=== PATIENT | female | born 1980 | race African-American/Black ===

== ENCOUNTER 2017-01-06 13:01 | Emergency (ER) | payer OTHER ==
[~2017-01-06] VITALS: Ht 165.1 cm; Wt 64.0 kg
--- NOTE | ~2017-01-06 | US67 ---
[facility] A Service of [facility] RADIOLOGY TEXT RESULTS PATIENT: WENDY BHATT LOCATION: [facility] : [birth year] UNIT #: [id number] AGE: [address]: Calvin Hunter MD SEX: F ORDER DR: [id number] [facility] [address] [place], [place] [address] [id number] E MR#: [id number] Acc #: [id number] NAME: WENDY BHATT : 1980 SEX: F STUDY DATE/TIME: 01/06/2017 16:36 UNIT: TRAV ROOM: STUDY DESCRIPTION: US Gallbladder Attending Physician: Calvin Hunter M.D. Ordering Physician: Calvin Hunter M.D. Primary Care Physician: No Primary Care Physician MEDICAL IMAGING REPORT This report is preliminary unless electronic signature is present EXAM Gallbladder ultrasound, 01/06/2017. HISTORY Right upper quadrant abdominal pain for 3 weeks. History of gallstones. FINDINGS The liver is homogeneous in echotexture and demonstrates no cystic or solid mass lesions. The intra and extrahepatic bile ducts are not dilated. The gallbladder is packed with sludge and contains gallstones. Additionally, there is diffuse thickening of the gallbladder wall measuring 5 mm. Findings are concerning for possible cholecystitis. Consider correlation with HIDA scan. The common duct measures 6 mm. The pancreas and right kidney are normal. IMPRESSION Abnormal examination. The gallbladder is distended and completely packed with sludge and also contains small gallstones. There is diffuse thickening of the gallbladder wall. Findings are concerning for possible cholecystitis. Clinical correlation is recommended. Consider correlation with HIDA scan. STAT * RESULT Dictated by... Khurram Brown M.D. THIS IS AN ELECTRONICALLY VERIFIED REPORT Khurram Brown M.D. at 01/06/2017 5:54 PM MARYBETH/yaniv [facility] A Service of [facility] RADIOLOGY TEXT RESULTS PATIENT: W[facility] BHATT [id number] [birth year] UNIT #: [id number] AGE: [address]: Calvin Hunter MD SEX: F ORDER DR: TD: 01/06/2017 16:56 JOB #: [id number] MEDICAL IMAGING REPORT Page 1 of 1 COPY
--- NOTE | ~2017-01-06 | CT4 ---
[facility] A Service of [facility] RADIOLOGY TEXT RESULTS PATIENT: WENDY HBATT LOCATION: [facility] : 80 UNIT #: [id number] AGE: [address]: Calvin Hunter MD SEX: F ORDER DR: [id number] [facility] [address] [place], [place] [address] [id number] E MR#: [id number] Acc #: [id number] NAME: WENDY BHATT : 1980 SEX: F STUDY DATE/TIME: 01/06/2017 15:22 UNIT: TRAV ROOM: STUDY DESCRIPTION: CT Abd and Pelv Wo Cont Attending Physician: Calvin Hunter M.D. Ordering Physician: Hunter Guy M.D. Primary Care Physician: Primary Care Physician No MEDICAL IMAGING REPORT This report is preliminary unless electronic signature is present EXAM CT abdomen and pelvis without contrast INDICATIONS Back pain, right upper quadrant pain today, history of gallstones. No comparison. TECHNIQUE Axial 3-mm images were obtained through the abdomen and pelvis without IV or oral contrast. Sagittal and coronal reconstructions were generated. This CT exam was performed with one or more of the following radiation dose reduction techniques: Automatic exposure control, adjustment of mA and/or kV according to patient size, and iterative reconstruction. FINDINGS The liver, spleen, pancreas, adrenal glands and kidneys are normal. The gallbladder is abnormal. There is either a large low-density stone within the gallbladder or there is fluid distending the gallbladder wall. There is definitely a small, calcified stone in the lower gallbladder measuring about 1 cm in diameter. In the upper gallbladder, there is a thin outline of what could be a large stone versus wall edema that is about 2 cm in thickness. Aorta is normal in size and there is no adenopathy. The bowel is normal. There is a small amount of free fluid in the pelvis. The uterus, adnexal regions and bladder are normal. The cecum lies in the deep pelvis, above the bladder. The bones are unremarkable. IMPRESSION 1. The gallbladder is distended and there are definitely some small, calcified stones within it. In the gallbladder near the neck, there is a 2 cm rim-like area of density that could represent a large, noncalcified stone, or possibly the rim-like appearance could represent the wall with edema surrounding it. There is no biliary STS. [facility] A Service of [facility] RADIOLOGY TEXT RESULTS PATIENT: WENDY BHATT LOCATION: [facility] : 80 UNIT #: [id number] AGE: [address]: Calvin Hunter MD SEX: F ORDER DR: distension. 2. Minimal free fluid in the pelvis. 3. Otherwise, normal. Dictated by... Yousif Valdez M.D. THIS IS AN ELECTRONICALLY VERIFIED REPORT Yousif Valdez M.D. at 01/07/2017 6:07 AM JORDI/david TD: 01/06/2017 21:43 JOB #: [id number] MEDICAL IMAGING REPORT Page 1 of 1 COPY
[~2017-01-06 13:01] MED LIST: PRILOSEC20 MG PO
[2017-01-06 15:20] LABS: BASOPHIL% 0.9 % (0-2.5); EOSINOPHIL# 0.1 X10e3 (0-0.7); EOSINOPHIL% 1.9 % (0.0-7.0); HEMATOCRIT 31.9 % (35.0-45.0); HEMOGLOBIN 10.4 gm/dL (12.0-16.0); LYMPHOCYTE# 1.5 X10e3 (1.0-3.5); LYMPHOCYTE% 45.6 % (17.0-45.0); MEAN CELL VOLUME 81.9 FL (83-96); MEAN CORPUSCULAR HEMOGLOBIN 26.7 PG (28-34); MEAN CORPUSCULAR HGB CONC 32.6 g/dL (30-36); MEAN PLATELET VOLUME 6.8 FL (6.5-11.5); MONOCYTE# 0.2 X10e3 (0-1.0); MONOCYTE% 7.5 % (3.0-12.0); NEUTROPHIL# 1.5 X10e3 (1.5-7.1); NEUTROPHIL% 44.1 % (40-75); PLATELET COUNT 266 X10e3 (140-420); RED BLOOD COUNT 3.89 X10e (3.90-5.30); RED CELL DISTRIBUTION WIDTH 13.5 % (11.0-15.5); WHITE BLOOD COUNT 3.3 X10e3 (4.0-10.5)
[2017-01-06 15:21] LABS: DIFF IND NO
[2017-01-06 15:45] LABS: ALBUMIN SERUM 3.9 g/dL (3.5-5.0); BILIRUBIN, DIRECT 0.1 mg/dL (0.0-0.2); BILIRUBIN,INDIRECT 0.8 mg/dL (0.0-0.9); BILIRUBIN,TOTAL 0.9 mg/dL (0.2-2.0); CALCIUM SERUM 8.2 mg/dL (8.4-10.2); CREATININE SERUM 0.5 mg/dL (0.6-1.4); GLOM FILT RATE Estimated 144.3 mL/min (>60); POTASSIUM 3.9 mmol/L (3.5-5.1); PROTEIN TOTAL SERUM 7.4 g/dL (6.0-8.3)
[2017-01-18] MEDS ORDERED: NO MEDICATIONS (14:28)
== END 2017-01-06 18:24 | disposition home or self-care (01) ==
LOC: CED 13:01
PROVIDERS: Emergency Medicine
DX: K80.70 Calculus of gallbladder and bile duct without cholecystitis without obstruction (principal)
CPT/HCPCS: 36415; 74176; 76705; 80048; 80076; 82150; 83690; 84703; 85025; 96361; 96374; 99284; J1885

== ENCOUNTER → 2017-01-24 | Day surgery (SDC) | payer OTHER ==
[~2017-01-24] MED LIST changes: +NO MEDICATIONS
--- NOTE | ~2017-01-24 | OR ---
Unit #: [id number] #: [id number] Patient: WENDY BHATT [id number] [address] [address] [id number] O MR#: [id number] NAME: WENDY BHATT ROOM: Date of Procedure: 01/24/2017 Admission Date: 01/24/2017 Surgeon: Sinan Roe III, M.D. : 1980 Attending Physician: Sinan Roe III, M.D. Primary Care Physician: Primary Care Physician No OPERATIVE REPORT PREOPERATIVE DIAGNOSIS Symptomatic cholelithiasis. POSTOPERATIVE DIAGNOSIS Symptomatic cholelithiasis with acute on chronic cholecystitis. SPECIMENS Gallbladder to Pathology. COMPLICATIONS None apparent. ESTIMATED BLOOD LOSS Minimal. ANESTHESIA General endotracheal tube anesthesia. DRAINS None. INDICATIONS FOR PROCEDURE This is a 36-year-old lady, who I saw in the office with what looked like symptomatic cholelithiasis. She is here today for laparoscopic cholecystectomy. DESCRIPTION OF PROCEDURE After consent was obtained, the patient was brought to the operating room and placed in the supine position. General anesthetic was administered, and her abdomen was prepped and draped in standard surgical fashion. I made a 5-mm incision in the right upper quadrant. I used an Optiview to enter into the peritoneal cavity without any difficulty. CO2 pneumoperitoneum was then established. Next, a second 5-mm port was placed in the infraumbilical region and an 11-mm port was placed in the midepigastric region and a third 5-mm port was placed in the right lateral subcostal region. She had a very tense distended gallbladder that I could not grasp. I had to aspirate it first and it was filled with what looked like almost an infected like fluid. I then was able to grasp the gallbladder and retracted superiorly and taken down some of the adhesions to the body of the gallbladder. Once this was done, I could then see the neck of the gallbladder which contained a large stone. I then provided some lateral traction as well and was able to dissect out the cystic duct Unit #: [id number] #: [id number] Patient: WENDY BHATT and cystic artery and after these were carefully identified, I placed two clips proximally and one clip distally along both structures and then they were divided. She also had a small posterior branch that was also clipped and divided. I then took the gallbladder off the liver bed using the hook cautery. I placed the gallbladder in an EndoCatch bag and extracted it through the epigastric port site after enlarging the skin opening and dilating the fascia to accommodate the large stone. Afterwards, I irrigated and had good hemostasis. I injected all the port sites with 0.25% plain Marcaine. The ports were removed and pneumoperitoneum was released. I reapproximated the fascia at the epigastric port site with interrupted 0 Vicryl [id number] suture. I then reapproximated the skin edges with interrupted 4-0 Vicryl subcuticular suture. Steri-Strips were then applied. The patient tolerated the procedure without any problems and returned to the recovery room in stable condition. Dictated by... Sinan Roe III, M.D. VCL/shanique TD: 01/24/2017 15:26 JOB #: [id number] OPERATIVE REPORT Page 1 of 1 X Sinan Roe III, MD PROCEDURE OPERATIVE NOTE
== END | disposition home or self-care (01) ==
LOC: CSUR 07:48
PROVIDERS: Surgery
PROC: 0FT44ZZ Resection of Gallbladder, Percutaneous Endoscopic Approach (ICD-10-PCS; principal; 2017-01-24 10:00)
DX: K80.12 Calculus of gallbladder with acute and chronic cholecystitis without obstruction (principal); D64.9 Anemia, unspecified; Z98.890 Other specified postprocedural states; Z83.3 Family history of diabetes mellitus; Z83.42 Family history of familial hypercholesterolemia; Z82.49 Family history of ischemic heart disease and other diseases of the circulatory system; Z91.040 Latex allergy status
CPT/HCPCS: 88304; J0330; J1100; J1885; J2250; J2270; J2710; J3010